=== PATIENT | female | born 1985 | race Caucasian/White ===

== ENCOUNTER 2017-06-03 21:56 | Emergency (ER) | payer OTHER ==
[2017-06-03 22:02] VITALS: BP 125/79; BMI 24.9
--- NOTE | 2017-06-03 23:37 | DR.GENAD ---
HPI - PCP Primary Care Physician: NFD - HPI Comment HPI Comment: WORSE TONIGHT. NO FEVER. NAUSEATED BUT NO VOMITING. PATIENT DENIES DIARRHEA. - Complaint/Symptoms Chief Complaint Doctors Comments: LOWER ABDOMINAL PAIN RADIATING TO THE BACK THAT IS INTERMITTENT. Chief Complaint:: PT STATES" I'VE HAD STOMACH PAINS AND CRAMPS SINCE SATURDAY LAST WEEK AND IT HASN'T GOTTEN ANY BETTER IT COMES AND GOES" - Nurses notes reviewed Nurses Notes Review: Yes - Source History Provided: Patient, Bystander - Mode of Arrival Mode of Arrival: Ambulatory - Timing Onset of Chief Complaint: 05/30/17 Came on: Suddenly - Duration Duration: Intermittent Duration: Days - Severity Severity: Moderate PMH - PMH Past Medical History: No Past Surgical History: Yes Surgical History: - Family History History of Family Medical Conditions: No - Social History Does any household member use tobacco: No Alcohol Use: None Do you use any recreational Drugs:: No Lives With: Family Lives Where: Home - infectious screening In the last 2 months have you had wt loss of >10#?: NO Have you had fever, night sweats or hemotysis?: No Have you traveled outside the country in the last 6 months?: No Isolation: Standard ROS - Review of Systems Constitutional: No Symptoms Reported Eyes: No Symptoms Reported ENTM: No Symptoms Reported Respiratoy: No Symptoms Reported Cardiovascular: No Symptoms Reported Gastrointestinal/Abdominal: Abdominal Pain, Nausea Genitourinary: negative: Dysuria, Frequency, Hematuria Neurological: No Symptoms Reported Musculoskeletal: No Symptoms Reported Integumentary: No Symptoms Reported Hematologic/Lymphatic: No Symptoms Reported Endocrine: No Symptoms Reported All Other Systems: Reviewed and Negative PE - Vital Signs Vitals: Temperature 98.5 F Pulse Rate 100 Respiratory Rate 18 Blood Pressure 125/79 O2 Sat by Pulse Oximetry 99 - General Limitations: No Limitations General Appearance: Alert - Head Head Exam: Normal Inspection - Eyes Eye exam: Normal Appearance - ENT ENT Exam: Normal External Ear Exam External Ear Exam: Normal External Inspection TM/Canal Exam: Bilateral Normal Nose Exam: Normal Nose Exam Mouth Exam: Normal Inspection Throat Exam: Normal Inspection - Neck Neck Exam: Trachea Midline - Chest Chest Inspection: Symmetric Chest Wall Rise - Respiratory Respiratory Exam: Normal Lung Sounds Bilat Respiratory Exam: Bilateral Clear to Auscultation - Cardiovascular Cardiovascular Exam: Regular Rate, Normal Rhythm, Normal Heart Sounds - Abdominal Exam Abdominal Exam: Normal Bowel Sounds, Soft, Tenderness Abdominal Tenderness: RLQ, LLQ, Suprapubic, Moderate - Extremities Extremities Exam: Normal Inspection - Back Back Exam: Normal Inspection - Neurologic Neurological Exam: Alert, Oriented X3 - Psychiatric Psychiatric Exam: Normal Affect, Normal Mood - Skin Skin Exam: Normal Color MDM - Differential Diagnosis Differential Diagnosis: UTI, BOWEL OBTRUCTION, ABDOMINAL PAIN Course - Treatment Treatment: SEE ORDERS - Education/Counseling Education/Counseling: Patient, Education Educated On: Treatment, Diagnosis, Needs for Follow Up ROR - Labs Reviewed Laboratory Results Reviewed?: Yes Result Diagrams: 06/03/17 23:50 06/03/17 23:50 Laboratory: WBC 9.8 X10^3/uL (3.6-10.0) 06/03/17 23:50 RBC 4.47 X10^6/uL (3.5-5.4) 06/03/17 23:50 Hgb 10.7 g/dL (12.0-16.0) L 06/03/17 23:50 Hct 33.1 % (36.0-47.0) L 06/03/17 23:50 MCV 73.9 fL (80.0-100.0) L 06/03/17 23:50 MCH 23.8 pg (27.0-34.0) L 06/03/17 23:50 MCHC 32.2 g/dL (33.0-35.0) L 06/03/17 23:50 RDW 15.4 % (11.6-16.5) 06/03/17 23:50 Plt Count 289 X10^3/uL (150.0-450.0) 06/03/17 23:50 Plt Count Comment Adequate (ADEQUATE) 06/03/17 23:50 MPV 6.8 fL (7.4-11.0) L 06/03/17 23:50 Neut % 70.0 % (42.0-75.0) 06/03/17 23:50 Lymph % 19.6 % (21.0-51.0) L 06/03/17 23:50 Long % 9.1 % (0.0-13.0) 06/03/17 23:50 Eos % 0.5 % (0.9-2.9) L 06/03/17 23:50 Baso % 0.8 % (0.2-1.0) 06/03/17 23:50 Neut # 6.8 x10^3/uL (2.2-4.8) H 06/03/17 23:50 Lymph # 1.9 X10^3/uL (1.3-2.9) 06/03/17 23:50 Long # 0.9 x10^3/uL (0.3-0.8) H 06/03/17 23:50 Eos # 0.1 x10^3/uL (0.0-0.2) 06/03/17 23:50 Baso # 0.1 X10^3/uL (0.0-0.1) 06/03/17 23:50 Absolute Nucleated RBC 0.0 /100WBC 06/03/17 23:50 Plt Morphology Comment Normal (NORMAL) 06/03/17 23:50 RBC Morphology Abnormal (NORMAL) A 06/03/17 23:50 Hypochromasia 1+ A 06/03/17 23:50 Microcytosis 1+ A 06/03/17 23:50 Sodium 137 mmol/L (136-145) 06/03/17 23:50 Corrected Sodium TNP 06/03/17 23:50 Potassium 3.7 mmol/L (3.5-5.1) 06/03/17 23:50 Chloride 104 mmol/L (98-107) 06/03/17 23:50 Carbon Dioxide 28.9 mmol/L (21-32) 06/03/17 23:50 BUN 10 mg/dL (7-18) 06/03/17 23:50 Creatinine 0.76 mg/dL (0.55-1.02) 06/03/17 23:50 Est GFR (MDRD) Af Amer > 60 (>60) 06/03/17 23:50 Est GFR (MDRD) Non-Af > 60 (>60) 06/03/17 23:50 Glucose 98 mg/dL (65-99) 06/03/17 23:50 Calcium 8.7 mg/dL (8.5-10.1) 06/03/17 23:50 Corrected Calcium 9.3 mg/dL (8.5-10.1) 06/03/17 23:50 Total Bilirubin 0.60 mg/dL (0.2-1.0) 06/03/17 23:50 AST 12 Units/L (15-37) L 06/03/17 23:50 ALT 16 Units/L (12-78) 06/03/17 23:50 Alkaline Phosphatase 39 Units/L (46-116) L 06/03/17 23:50 Total Protein 7.9 g/dL (6.4-8.2) 06/03/17 23:50 Albumin 3.2 g/dL (3.4-5.0) L 06/03/17 23:50 Globulin 4.7 g/dL (2.5-4.5) H 06/03/17 23:50 Albumin/Globulin Ratio 0.7 Ratio (1.1-2.1) L 06/03/17 23:50 Amylase 19 Units/L (25-115) L 06/03/17 23:50 Lipase 76 Units/L (73-393) 06/03/17 23:50 HCG, Qual Negative <10 mIU/mL 06/03/17 23:50 Specimen Type Clean catch urine 06/03/17 23:26 Urine Color Yellow (YELLOW) 06/03/17 23:26 Urine Appearance Cloudy (CLEAR) 06/03/17 23:26 Urine pH 6.0 (5.0 - 8.0) 06/03/17 23:26 Ur Specific [place] 1.025 (1.000-1.030) 06/03/17 23:26 Urine Protein 2+ (NEGATIVE) 06/03/17 23:26 Urine Glucose (UA) Negative (NEGATIVE) 06/03/17 23:26 Urine Ketones 3+ (NEGATIVE) 06/03/17 23:26 Urine Occult Blood 1+ (NEGATIVE) 06/03/17 23:26 Urine Nitrite Negative (NEGATIVE) 06/03/17 23:26 Urine Bilirubin Negative (NEGATIVE) 06/03/17 23:26 Urine Urobilinogen 1+ (NORMAL) 06/03/17 23:26 Ur Leukocyte Esterase 3+ (NEGATIVE) 06/03/17 23:26 Urine RBC 0-3 /HPF (NEGATIVE) 06/03/17 23:26 Urine WBC 20-25 /HPF (NEGATIVE) 06/03/17 23:26 Ur Squamous Epith Cells Moderate /HPF (NEGATIVE) 06/03/17 23:26 Urine Bacteria 1+ /HPF (NEGATIVE) 06/03/17 23:26 Urine Mucus Few /HPF (NEGATIVE) 06/03/17 23:26 Ur Culture Indicated? Yes/culture set up 06/03/17 23:26 - Diagnosis Discharge Problem: Abdominal pain Qualifiers: Abdominal location: lower abdomen, unspecified Qualified Code(s): R10.30 - Lower abdominal pain, unspecified UTI (urinary tract infection) Qualifiers: Urinary tract infection type: site unspecified Hematuria presence: without hematuria Qualified Code(s): N39.0 - Urinary tract infection, site not specified - Discharge Plan Condition: Stable Prescriptions: Sulfamethoxazole-Trimethoprim [BACTRIM DS TAB 800/160 MG *] 1 tab PO BID #20 tab - Follow ups/Referrals Follow ups/Referrals: NFD,None [Primary Care Provider] - 3 days - Instructions Instructions: Urinary Tract Infection, Abdominal Pain, Adult, [id number] Additional Instructions: RETURN TO ED IF WORSE.
[2017-06-03 23:47] LABS: BILIRUBIN,URINE NEGATIVE (NEGATIVE); BLOOD/HEMOGLOBIN,URINE 1+ (NEGATIVE); GLUCOSE, URINE NEGATIVE (NEGATIVE); KETONES,URINE 3+ (NEGATIVE); LEUKOCYTE ESTERASE ,URINE 3+ (NEGATIVE); NITRITES,URINE NEGATIVE (NEGATIVE); PROTEIN,URINE 2+ (NEGATIVE); UROBILINOGEN,URINE 1+ (NORMAL)
[2017-06-03 23:52] LABS: APPEARANCE,URINE CLOUDY (CLEAR); BACTERIA,URINE 1+ /HPF (NEGATIVE); COLOR,URINE YELLOW (YELLOW); MUCUS,URINE FEW /HPF (NEGATIVE); RBC,URINE 0-3 /HPF (NEGATIVE); SQUAMOUS EPITHELIAL CELL,UR MODERATE /HPF (NEGATIVE)
[2017-06-04 00:02] LABS: BASOPHILS # (AUTO) 0.1 X10^3/uL (0.0-0.1); BASOPHILS % (AUTO) 0.8 % (0.2-1.0); EOSINOPHILS # (AUTO) 0.1 x10^3/uL (0.0-0.2); EOSINOPHILS % (AUTO) 0.5 % (0.9-2.9); HEMATOCRIT 33.1 % (36.0-47.0); HEMOGLOBIN 10.7 g/dL (12.0-16.0); LYMPHOCYTES # (AUTO) 1.9 X10^3/uL (1.3-2.9); LYMPHOCYTES % (AUTO) 19.6 % (21.0-51.0); MEAN CORPUSCULAR HEMOGLOBIN 23.8 pg (27.0-34.0); MEAN CORPUSCULAR HGB CONC 32.2 g/dL (33.0-35.0); MEAN CORPUSCULAR VOLUME 73.9 fL (80.0-100.0); MEAN PLATELET VOLUME 6.8 fL (7.4-11.0); MONOCYTES # (AUTO) 0.9 x10^3/uL (0.3-0.8); MONOCYTES % (AUTO) 9.1 % (0.0-13.0); NEUTROPHILS # (AUTO) 6.8 x10^3/uL (2.2-4.8); PLATELET COUNT 289 X10^3/uL (150.0-450.0); RED BLOOD COUNT 4.47 X10^6/uL (3.5-5.4); RED CELL DISTRIBUTION WIDTH 15.4 % (11.6-16.5); WHITE BLOOD COUNT 9.8 X10^3/uL (3.6-10.0)
[2017-06-04 00:10] LABS: SERUM PREGNANCY TEST, QUAL NEGATIVE <10 mIU/mL
[2017-06-04] MEDS ORDERED: BACTRIM DS TAB PO ONE ×2 (00:12→00:14)
[2017-06-04 00:20] LABS: ALANINE AMINOTRANSFERASE 16 Units/L (12-78); ALBUMIN 3.2 g/dL (3.4-5.0); ALKALINE PHOSPHATASE 39 Units/L (46-116); AMYLASE 19 Units/L (25-115); ASPARTATE AMINO TRANSFERASE 12 Units/L (15-37); BLOOD UREA NITROGEN 10 mg/dL (7-18); CALCIUM 8.7 mg/dL (8.5-10.1); CARBON DIOXIDE 28.9 mmol/L (21-32); CHLORIDE 104 mmol/L (98-107); COR CA(FOR HYPOALB) 9.3 mg/dL (8.5-10.1); CREATININE 0.76 mg/dL (0.55-1.02); GLUCOSE 98 mg/dL (65-99); LIPASE 76 Units/L (73-393); SODIUM 137 mmol/L (136-145); TOTAL PROTEIN 7.9 g/dL (6.4-8.2); eGFR BLACK RACES > 60 (>60); eGFR NON BLACK RACES > 60 (>60)
[2017-06-04 00:22] LABS: HYPOCHROMASIA 1+; MICROCYTOSIS 1+; PLATELET MORPHOLOGY COMMENT NORMAL (NORMAL)
== END 2017-06-04 00:42 | disposition home or self-care (01) ==
LOC: ER 22:08
DX: N39.0 Urinary tract infection, site not specified (principal); R10.31 Right lower quadrant pain
CPT/HCPCS: 36415; 80053; 81001; 82150; 83690; 84703; 85025; 87086; 99283